=== PATIENT | female | born 1970 | race Hispanic/Latino ===

== ENCOUNTER 2021-03-09 02:20 | Emergency (ER) | payer SELFPAY ==
[2021-03-09 03:33] LABS: Blood Urea Nitrogen 24 mg/dL (7-17); Calcium 9.8 mg/dL (8.4-10.2); Hemolysis Index 6
[2021-03-09 03:39] LABS: BUN/Creatinine Ratio 34
[2021-03-09 03:47] LABS: Basophils % (Auto) 0.9 % (0.0-1.8); Eosinophils # (Auto) 0.1 K/mm3 (0.0-0.4); Eosinophils % (Auto) 1.5 % (0.0-4.3); Lymphocytes # (Auto) 1.3 K/mm3 (1.2-5.4); Lymphocytes % (Auto) 31.6 % (13.4-35.0); Mean Corpuscular HGB Conc 31 % (30-34); Mean Corpuscular Volume 78 fl (79-97); Monocytes # (Auto) 0.4 K/mm3 (0.0-0.8); Monocytes % (Auto) 8.5 % (0.0-7.3); Platelet Count 281 K/mm3 (140-440); Red Blood Count 4.93 M/mm3 (3.65-5.03); Red Cell Distribution Width 19.3 % (13.2-15.2)
[2021-03-09 03:59] LABS: Hematocrit 38.2 % (30.3-42.9); Hemoglobin 11.7 gm/dl (10.1-14.3)
[2021-03-09] MEDS ORDERED: PHENYTOIN 1,000 MG in SODIUM CHLORIDE 0.9% 250ML 250 ML IV ONE (04:03)
--- NOTE | 2021-03-09 04:13 | Emergency Department Report ---
ED Seizure HPI - General Chief Complaint: Psych Stated Complaint: POSS SEIZURES Time Seen by Provider: 03/09/21 02:25 Source: patient, EMS Mode of arrival: Stretcher Limitations: No Limitations - History of Present Illness Initial Comments: Patient is a 50-year-old female who has a past medical history of a seizure disorder who is presenting status post possible seizure. Patient was witnessed in a store walking around with abnormal behavior. Patient was mumbling to herself. She also was seen lying on the ground shaking uncontrollably. Is questionable whether the patient was awake and alert at that time. Patient did have episode where she did urinate on herself. Paramedics state that they are unsure whether she had a true tonic-clonic seizure. Patient was mumbling on the ride here with with his paramedics state was asked paranoid delusions. Although the patient was in a store she was complaining that someone is stolen when her things. Patient seem to have some tangential thoughts as well. - Related Data Allergies Allergy/AdvReac Type Severity Reaction Status Date / Time gabapentin [From Neurontin] AdvReac Unknown Verified 03/09/21 02:31 prochlorperazine AdvReac Seizure Verified 03/09/21 02:31 [From Compazine] ED Review of Systems ROS: Stated complaint: POSS SEIZURES Other details as noted in HPI Comment: All other systems reviewed and negative ED Past Medical Hx - Past Medical History Previous Medical History?: Yes Hx Hypertension: Yes Hx Seizures: Yes (takes dilantin) Hx Psychiatric Treatment: Yes ED Physical Exam - General Limitations: No Limitations General appearance: alert, in no apparent distress - Head Head exam: Present: atraumatic, normocephalic - Eye Eye exam: Present: normal appearance, PERRL, EOMI - ENT ENT exam: Present: mucous membranes moist - Neck Neck exam: Present: normal inspection - Respiratory Respiratory exam: Present: normal lung sounds bilaterally. Absent: respiratory distress, wheezes, rales, rhonchi - Cardiovascular Cardiovascular Exam: Present: regular rate, normal rhythm. Absent: systolic murmur, diastolic murmur, rubs, gallop - GI/Abdominal GI/Abdominal exam: Present: soft, normal bowel sounds. Absent: distended, tenderness, guarding, rebound - Extremities Exam Extremities exam: Present: normal inspection - Back Exam Back exam: Present: normal inspection - Neurological Exam Neurological exam: Present: alert, oriented X3 - Psychiatric Psychiatric exam: Present: normal mood, flat affect, other (seems paranoid) - Skin Skin exam: Present: warm, dry, intact, normal color. Absent: rash ED Course Vital Signs 03/09/21 03/09/21 03/09/21 02:25 02:54 03:00 Temperature 98.7 F Pulse Rate 76 90 Respiratory 16 20 Rate Blood Pressure 142/81 Blood Pressure 155/89 [Right] O2 Sat by Pulse 98 100 98 Oximetry - Reevaluation(s) Reevaluation #1: 03/09/21 04:13 Patient states she does take Dilantin for seizures but has not been taking it lately. Dilantin level is undetectable. Patient be loaded with Dilantin. Because of the abnormal behaviors and paranoia would like our psychiatric team to see the patient. Patient is medically cleared for psychiatric evaluation. Reevaluation #2: 03/09/21 04:41 Patient is much more talkative at this time. It is possible the patient was postictal to some degree when she arrived. Now the patient states that she is hearing loud voices in her head and seems to be getting agitated. Give the patient Ativan. Patient is medically cleared to be seen by our psychiatry team in the morning. ED Medical Decision Making - Lab Data Result diagrams: 03/09/21 03:02 03/09/21 03:02 Critical care attestation.: If time is entered above; I have spent that time in minutes in the direct care of this critically ill patient, excluding procedure time. ED Disposition Condition: Stable
[2021-03-09] MEDS ORDERED: LORazepam 2 MG/ML VIAL IV ONE ×3 (04:41→16:54)
[2021-03-09] MEDS ORDERED: FAMOTIDINE 20 MG/2 ML INJ IV ONE (05:25)
[2021-03-09] MEDS ORDERED: KETOROLAC 30 MG/1 ML INJ IV ONE (05:25)
[2021-03-09] MEDS ORDERED: HYDROmorphone 1 MG/1 ML INJ IV ONE (06:13)
[2021-03-09] MEDS ORDERED: ONDANSETRON 4 MG/2 ML INJ IV ONE (06:13)
[2021-03-09] MEDS ORDERED: SODIUM CHLORIDE 0.9% 1000 ML 1,000 ML IV ONE (06:15)
--- NOTE | 2021-03-09 06:15 | Event Note ---
I was asked by nurse to provide sedation for patient. Patient is jittery and agitated. She lives in [place]. She is here visiting friends. She takes OxyContin daily for RSD and ovarian cysts. For the last 4 days she has been having uncontrollable body jerks. I have ordered IV hydromorphone I suspect that patient is having opioid withdrawal symptoms. I have also ordered normal saline.
--- NOTE | 2021-03-09 11:21 | Cat Scan Report ---
CT ABDOMEN AND PELVIS WITHOUT CONTRAST HISTORY: lower abdominal pain. COMPARISON: None. TECHNIQUE: CT images of the abdomen and pelvis were obtained without administration of intravenous co ntrast. All CT scans at this location are performed using CT dose reduction for ALARA by means of au tomated exposure control. FINDINGS: Lungs/bones: Lung bases are clear. Degenerative changes in the spine and pelvis with no acute osseou s abnormality. Abdomen/pelvis: The liver, gallbladder, spleen, pancreas, adrenals, kidneys, and proximal GI tract a ppear unremarkable. Urinary bladder and reproductive organs are unremarkable with no pelvic free fluid or acute colonic a bnormality identified. The appendix is normal. IMPRESSION: 1. Unremarkable examination. Signer Name: Tashi Malcolm MD Signed: 03/09/2021 11:17 AM Workstation Name: [id number]
--- NOTE | 2021-03-09 12:21 | Consultation ---
History of Present Illness - Reason for Consult Consult date: 03/09/21 Reason for consult: MHE - History of Present Psychiatric Illness The patient was seen today. She is a 50y/o female who was brought to the ER for seizure activity. During my evaluation of the patient, she appears drowsy. She also appears delusional and paranoid at times. She is difficult to follow. She was unable to tell me what brought her to the hospital initially. She says "I don't have a memory of it." The patient is confused and can't tell me the date or where she is. She says "I know it I just can't get it out." She says she's been having seizures "and nobody is doing anything about it." The patient then starts shaking and staring as if she's having a seizure, but she is still talking the whole time. She says the only psych history she has is PTSD and states she takes xanax. The patient says all of her family is and she only has herself. The patient denies SI/HI but states she had a suicidal attempt in the past. She could not tell me how. The patient denies hallucinations, but states she doesn't feel safe. She says "somebody is after me." The patient then starts shaking again. 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 PAST PSYCHIATRIC HISTORY: Diagnoses: PTSD Suicide attempts or Self-harm behavior: yes Prior psychiatric hospitalizations: Yes Substance Abuse history: Denies Previous psychiatric medications tried: Xanax Outpatient treatment: yes PAST MEDICAL HISTORY: None reported or document Family Psychiatric History: None reported or documented SOCIAL HISTORY Marital Status: Single Living Arrangements: lives alone Employment Status: disability Access to guns/weapons: denies Education: History of Abuse: denies Legal History: denies REVIEW OF SYSTEMS Constitutional: Negative for weight loss ENT: Negative for stridor Respiratory: Negative for cough or hemoptysis All other systems reviewed and are negative MENTAL STATUS EXAMINATION General Appearance and Behavior: Age appropriate, good hygiene, wearing appropriate clothes, cooperative Cooperation: engaged Psychomotor Behavior: Psychomotor normal Mood: "not good" Affect and affective range: congruent with stated mood Thought Process: circumstantial Thought Content: denies Speech: Normal volume, Regular rate and rhythm, Suicidal Ideation: Denies Homicidal Ideation: Denies Hallucinations: Auditory Delusions: None elicited Impulse Control: Questionable Insight and Judgment: Limited Memory: Limited Attention: attentive Orientation: a/o Assessment and Plan (1) Delusional Disorder Treatment Plan 1013 Olanzapine 5mg po daily Lorazepam 0.5mg po q4h prn anxiety Sitter: per primary Medical: per primary Disposition: Recommend acute psychiatric inpatient treatment at this time Will follow thanks. Case staffed with Dr. Brown Medications and Allergies Allergies Allergy/AdvReac Type Severity Reaction Status Date / Time gabapentin [From Neurontin] AdvReac Unknown Verified 03/09/21 02:31 prochlorperazine AdvReac Seizure Verified 03/09/21 02:31 [From Compazine] Mental Status Exam - Vital signs Last Vital Signs Temp 98.9 F 03/09/21 10:34 Pulse 910 H 03/09/21 11:45 Resp 18 03/09/21 11:45 BP 103/58 03/09/21 11:45 Pulse Ox 98 03/09/21 11:45 Results Result Diagrams: 03/09/21 03:02 03/09/21 03:02 Abnormal lab results 03/09/21 03/09/21 03/09/21 Range/Units 03:02 03:02 03:02 WBC 4.2 L (4.5-11.0) K/mm3 MCV 78 L (79-97) fl MCH 24 L (28-32) pg RDW 19.3 H (13.2-15.2) % Cole % (Auto) 8.5 H (0.0-7.3) % Chloride 107.8 H (98-107) mmol/L Carbon Dioxide 21 L (22-30) mmol/L BUN 24 H (7-17) mg/dL Glucose 105 H (65-100) mg/dL Salicylates < 0.3 L (2.8-20.0) mg/dL Acetaminophen (10.0-30.0) ug/mL Phenytoin 0.8 L (10.0-20.0) ug/mL 03/09/21 Range/Units 03:02 WBC (4.5-11.0) K/mm3 MCV (79-97) fl MCH (28-32) pg RDW (13.2-15.2) % Cole % (Auto) (0.0-7.3) % Chloride (98-107) mmol/L Carbon Dioxide (22-30) mmol/L BUN (7-17) mg/dL Glucose (65-100) mg/dL Salicylates (2.8-20.0) mg/dL Acetaminophen 5.0 L (10.0-30.0) ug/mL Phenytoin (10.0-20.0) ug/mL All other labs normal.
[2021-03-09] MEDS ORDERED: LORazepam 0.5 MG TAB PO PRN (12:34)
[2021-03-09 13:57] LABS: Amphetamine Screen,Urine PRESUMPTIVE NEGATIVE; Benzodiazepines Screen,Urine PRESUMPTIVE NEGATIVE; Cannabinoid Screen,Urine PRESUMPTIVE NEGATIVE; Cocaine Screen,Urine PRESUMPTIVE NEGATIVE; Methadone Screen,Urine PRESUMPTIVE NEGATIVE; Opiate Screen,Urine PRESUMPTIVE NEGATIVE
[2021-03-09 14:04] LABS: Bacteria,Urine 1+ /HPF (Negative); Bilirubin,Urine NEG (Negative); Blood,Urine SM (Negative); Color,Urine Yellow (Yellow); Mucus,Urine 1+ /HPF; Urobilinogen,Urine < 2.0 mg/dL (<2.0)
[2021-03-09] MEDS ORDERED: LORazepam 2 MG/ML VIAL ONE (15:43)
[2021-03-09] MEDS ORDERED: DEXTROSE 50% IN WATER (25GM) 50 ML SYRINGE IV ONE ×2 (18:26→18:29)
[2021-03-10] MEDS ORDERED: ZOLPIDEM 5 MG TAB PO ONE (05:12)
[2021-03-10] MEDS ORDERED: ACETAMINOPHEN 325 MG TAB PO ONE (05:13)
--- NOTE | 2021-03-10 10:26 | Progress Note ---
Subjective - Reason for Consult Consult date: 03/10/21 Reason for consult: psychosis - Chief Complaint Chief complaint: The patient was seen today. She appears much better than yesterday. She patient is more calm. She is complaining of being thirsty, hungry and in a lot of pain. The patient denies hallucinations of any kind. When asked was she suicidal, the patient replies "no, but I've thought about it." She says "sometimes I feel sad." The patient says she doesn't remember much after having her seizures. But she says yesterday she was feeling paranoid. REVIEW OF SYSTEMS Constitutional: Negative for weight loss ENT: Negative for stridor Respiratory: Negative for cough or hemoptysis All other systems reviewed and are negative MENTAL STATUS EXAMINATION General Appearance and Behavior: Age appropriate, good hygiene, wearing appropriate clothes, calm and cooperative Cooperation: engaged Psychomotor Behavior: Psychomotor normal Mood: "okay" Affect and affective range: congruent with stated mood Thought Process: circumstantial Thought Content: denies Speech: Normal volume, Regular rate and rhythm, Suicidal Ideation: Denies Homicidal Ideation: Denies Hallucinations: Denies Delusions: None elicited Impulse Control: Limited Insight and Judgment: Limited Memory: Limited Attention: attentive Orientation: a/o Assessment and Plan (1) Delusional Disorder Treatment Plan d/c 1013 Olanzapine 5mg po daily Zoloft 25mg po daily Sitter: per primary Medical: per primary Disposition: Do not recommend acute psychiatric inpatient treatment at this time. The patient understands that if suicidal thoughts are to arise she is to seek immediate assistance. The shellfish grower to give the patient outpatient resources Will sign off. thanks. Case staffed with Dr. Brown Mental Status Exam - Vital signs Last Vital Signs Temp 98.9 F 03/09/21 10:34 Pulse 81 03/10/21 00:01 Resp 22 03/10/21 00:01 BP 104/63 03/10/21 00:01 Pulse Ox 100 03/09/21 16:45
[2021-03-10 10:47] VITALS: BP 116/76
--- NOTE | 2021-03-10 11:13 | Event Note ---
Date: 03/10/21 Patient has been evaluated by our psychiatric team and recommended discharge and outpatient follow-up. Patient is calm. Patient is alert, oriented x3 no acute distress. Patient is medically and psychiatrically stable for discharge.
== END 2021-03-10 12:45 | disposition home or self-care (01) ==
LOC: ED 02:20
DX: R56.9 Unspecified convulsions (principal); I10 Essential (primary) hypertension; Z20.822 Contact with and (suspected) exposure to COVID-19; Z79.899 Other long term (current) drug therapy
CPT/HCPCS: 36415; 74176; 80048; 80185; 80307; 81001; 84703; 85025; 96361; 96365; 96375; 96376; 99285; J1165; J1170; J1885; J2060; J2405; J3490; J7030; J7050; U0003; 80320; Q0162; G0480